=== PATIENT | male | born 1975 | race Caucasian/White ===

== ENCOUNTER → 2022-10-31 | Day surgery (SDC) | payer OTHER ==
[~2022-10-31] VITALS: Ht 177.8 cm; Wt 90.9 kg
[~2022-10-31] MED LIST: AMLO-258 PO; APRE30TA5 PO; ATEN-72 PO; ATOR10TA PO; BENZOCAINE 20% 50 MCG/SPRAY 57 GM TP ONE; FOLI-130 PO; FentaNYL CITRATE PF 100 MCG/2 ML VIAL ONE; GABA-1181 PO; LEVALBUTEROL HCL 1.25 MG/0.5 ML NEB SOLUTION NEB ONE; LIDOCAINE 2% 11 ML JELLY TP ONE; LIDOCAINE 4% 50 ML SOLUTION TP ONE; MIDAZOLAM HCL 2 MG/2 ML VIAL ONE; MONT-35 PO; MethylPREDNISolone SOD SUCC 125 MG/2 ML VIAL IVP ONE; MethylPREDNISolone SOD SUCC 125 MG/2 ML VIAL ONE; OXYGEN THERAPY IH SCH; PANT-31 PO; PRED-549 PO; SODIUM CHLORIDE 0.9% 1,000 ML IV ONE; SODIUM CHLORIDE 0.9% 1,000 ML ONE
[2022-10-31 06:45] LABS: COVID AG,FIA SOURCE NASAL SWAB
== END | disposition home or self-care (01) ==
LOC: SURGERY 06:29
PROVIDERS: ATTEND Internal Medicine Critical Care Medicine
DX: J38.4 Edema of larynx (principal); B37.0 Candidal stomatitis; J39.8 Other specified diseases of upper respiratory tract; Z20.822 Contact with and (suspected) exposure to COVID-19; E78.00 Pure hypercholesterolemia, unspecified; G47.30 Sleep apnea, unspecified; Z87.891 Personal history of nicotine dependence; Z72.89 Other problems related to lifestyle
CPT/HCPCS: 88112; 87206; 87101; 87220; 87070; 87186; 31623; 31624; 94640; 71045; 87015; 87426; J3010; J2250; J2930; Q9967; J7030; C9803; Z7610